=== PATIENT | male | born 1985 | race Caucasian/White ===

== ENCOUNTER 2017-08-05 18:17 | Emergency (ER) | payer BC, OTHER ==
[2017-08-05 18:33] VITALS: BP 150/74
--- NOTE | 2017-08-05 19:01 | ERNOTE ---
[facility] Date of Service: 08/05/17 Presenting Symptoms: eye pain Time Seen by Provider: 08/05/17 18:34 Source: patient Exam Limitations: no limitations - Immun/Allergies/Home Medications Immunizations: IMMUNIZATION HX Immunizations Up to Date No History of Influenza Vaccine No Hx Pneumococcal Vaccination No Allergies/Adverse Reactions: Allergies Allergy/AdvReac Type Severity Reaction Status Date / Time No Known Allergies Allergy Unverified 08/05/17 18:25 Home Medications: HOME MEDICATIONS Allopurinol [Zyloprim (Allopurinol)] 100 mg PO DAILY 08/05/17 [Last Taken Unknown] Amlodipine Besylate 10 mg PO DAILY 08/05/17 [Last Taken Unknown] Enalapril Maleate [Vasotec] 20 mg PO DAILY 08/05/17 [Last Taken Unknown] Gentamicin Sulfate [Gentacidin 0.3% Ophth Ointment] 1 appl LEFTEYE TID #1 bottle 08/05/17 [Last Taken Unknown] prednisoLONE ACETATE [Pred Forte 1%] 1 drop OP BID #1 btl 08/05/17 [Last Taken Unknown] - History of Present Illness Narrative: Pt. comes in with the L eye swollen and red for 6 hours since he was fishing and he rubbed his L eye then his eye began to become irritated and now has a blister attached. Pt. denies any SOB, CP, vision changes, fever, alleviating or aggravating factors. Review of Systems - Review of Systems Constitutional: Present: no symptoms reported. Absent: fever, chills, weakness , fatigue, malaise EYE: Present: eye pain, tearing. Absent: blurred vision, double vision, vision changes ENT: Present: no symptoms reported. Absent: ear pain Respiratory: Present: no symptoms reported. Absent: shortness of breath, cough , wheezing Cardiology: Present: no symptoms reported. Absent: chest pain, palpitations, edema Gastrointestinal/Abdominal: Present: no symptoms reported. Absent: nausea, vomiting, diarrhea Genitourinary: Present: no symptoms reported. Absent: frequency, decreased urinary output Musculoskeletal: Present: no symptoms reported. Absent: back pain, joint pain Skin: Present: no symptoms reported. Absent: rash, change in hair/nails Neurological: Present: no symptoms reported. Absent: headache, dizziness/light- headedness, numbness, tingling All Other Systems: All systems neg except as marked - Patient's Past Medical History Patient History - Medical: No pertinent hx Patient History - Cardiac/Respiratory: Hypertension Patient History - Cancer: No Hx of Cancer Patient History - Surgical Procedures: Orthopedic Patient History - Other: None - Family History Father Family History - Medical: No pertinent hx Family History - Cardiac/Respiratory: Coronary Heart Disease Family History - Cancer: No pertinent family hx - Social History Living Situations: spouse Abuse History: No History of abuse Psych History: No pertinent hx Smoking Status: Former smoker Have you smoked in the past 12 months: No Do you dip or chew tobacco: No Patient requests Smoking Cessation Consult: No Initiate information on Smoking Cessation: No Alcohol Use: heavy Drug Use: none - Immunizations Immunizations Up to Date: No Hx Pneumococcal Vaccination: No History of Influenza Vaccine: No Physical Exam - Physical Exam General Appearance: Present: wd/wn, alert, no apparent distress Head Exam: Present: normal inspection, no evidence of injury Eye Exam: Normal inspection: right, PERRL: bilateral, EOMI: bilateral, Sclera injection: left, Eyelid inflammation: left, Other: left - chemosis L eye Ears, Nose, Throat: Present: normal ENT inspection, normal pharynx Respiratory: Present: no respiratory distress, normal breath sounds, no accessory muscle use, chest nontender, lungs clear Cardiovascular/Chest: Present: regular rate, rhythm, no murmur, normal peripheral pulses Back Exam: Present: normal inspection Extremity Exam: Present: normal inspection Neurological Exam: Present: alert, oriented, normal mood/affect, no motor/ sensory deficits, station superintendent II-XII nml as tested, normal cerebellar test Skin Exam: Present: normal color, warm/dry. Absent: pallor, skin rash ED Progress - Date and Time Seen: Date and Time: 08/05/17 18:50 Pt. with no corneal abrasion on flourescein stain and with no abnormality of fundiscopic and anterior chamber exam and no foreign body noted. Will discahrge pt. on abx ointment and have him follow up with his opthamologist on Monday. - Vital Signs Patient's Vital Signs:: I have reviewed the patient's vital signs. Vital Signs: Vital Signs 08/05/17 18:27 Temperature 36.8 C Pulse Rate 94 Respiratory 18 Rate Blood Pressure 150/74 O2 Sat by Pulse 98 Oximetry - Progress/Reassessment Chief Complaint: Eye Injury/Trauma Departure Clinical Impression: Chemosis of left conjunctiva - Departure Disposition: Home self-care Condition: Good Instructions: Bacterial Conjunctivitis, [id number] Additional Instructions: Please follow up with opthamologist in 2-3 days. Referrals: Wesley Rowland MD [Primary Care Provider] - Prescriptions: Gentamicin Sulfate [Gentacidin 0.3% Ophth Ointment] 1 appl LEFTEYE TID #1 bottle prednisoLONE ACETATE [Pred Forte 1%] 1 drop OP BID #1 btl
== END 2017-08-05 19:05 | disposition home or self-care (01) ==
LOC: ER 18:17
DX: H11.422 Conjunctival edema, left eye; I10 Essential (primary) hypertension; Z87.891 Personal history of nicotine dependence